=== PATIENT | female | born 1975 | race Caucasian/White ===

== ENCOUNTER 2017-12-19 10:24 | Emergency (ER) | payer BC, OTHER ==
[2017-12-19 11:33] LABS: Urine Blood NEGATIVE (NEG); Urine Glucose NEGATIVE (NEG); Urine Protein NEGATIVE (NEG); Urine Specific Gravity 1.015 (1.005-1.030); Urine pH 7.5 (5.0-7.0)
[2017-12-19 12:03] LABS: Absolute Lymphocytes (CBC) 2.5 K/uL (0.7-4.9); Absolute Monocytes 0.5 K/uL (0.1-1.3); Absolute Neutrophil 5.2 K/uL (1.8-8.0); Basophils % 0.6 % (0-1.3); Hematocrit 37.6 % (36.0-45.0); Lymphocytes % 29.5 % (15.3-44.8); MCH 31.4 pg (27.0-35.0); MCV 90.8 fL (80-100); MPV 7.2 fL (7.6-11.3); Monocytes % 5.8 % (3.3-12.3); RBC Red Blood Cell Count 4.14 M/uL (3.86-4.86)
[2017-12-19 12:04] LABS: Barbiturates NEGATIVE (NEGATIVE); Benzodiazepines NEGATIVE (NEGATIVE); Cocaine NEGATIVE (NEGATIVE); METHAMPHETAM NEGATIVE (NEGATIVE); Methadone NEGATIVE (NEGATIVE); Opiates NEGATIVE (NEGATIVE); Phencyclidine NEGATIVE (NEGATIVE); Protime INR 1.02; THC Cannibis NEGATIVE (NEGATIVE)
[2017-12-19 12:19] LABS: ALT/SGPT 26 U/L (12-78); AST/SGOT 18 U/L (15-37); Albumin 4.1 g/dL (3.4-5.0); Alkaline Phosphatase 76 U/L (45-117); BUN Blood Urea Nitrogen 6 mg/dL (7-18); Bicarbonate 24 mmol/L (21-32); Bilirubin Direct 0.1 mg/dL (0-0.2); Bilirubin Total 0.4 mg/dL (0.2-1.0); Glucose Level 99 mg/dL (74-106); Potassium 3.8 mmol/L (3.5-5.1); Protein, Total 8.2 g/dL (6.4-8.2); Sodium Level 143 mmol/L (136-145)
[2017-12-19] MEDS ORDERED: NA CHLORIDE 0.9% 1,000 ML ONE (13:00)
--- NOTE | 2017-12-19 15:23 | EDPHYS ---
Physician Documentation [facility] Name: Julita Winchester Age: 42 yrs Sex: Female : 1975 Arrival Date: 12/19/2017 Time: 10:49 Bed 17 Private MD: ED Physician Aric Vásquez HPI: 12/19 12:00 This 42 yrs old Female presents to ER via EMS with complaints of Psych jr8 Problem. 12:00 The patient presents to the emergency department with depression, suicide ideation, and jr8 the patient has a plan, to cut oneself and bleed. Onset: The symptoms/episode began/occurred acutely, today. Past psychiatric history: Prior diagnosis: depression, Psychiatric medications include: Wellbutrin. Associated signs and symptoms: The patient has no apparent associated signs or symptoms. Severity of symptoms: At their worst the symptoms were moderate in the emergency department the symptoms are unchanged. The patient has experienced similar episodes in the past, a few times. The patient has not recently seen a physician. Patient stated that she goes through stages of depression. On medication but feels it should be helping more. Stated that over the past 2 weeks has felt very depressed. Today wanted to cut herself with a knife to kill herself. Superficial wounds noted to left wrist and right middle digit. Admits that she could have gone through with trying to kill herself today . [employer]: 10:53 LMP 12/15/2017 aj Historical: - Allergies: 10:53 No Known Allergies; aj - Home Meds: 10:53 lisinopril 20 mg Oral tab 1 tab once daily [Active]; Wellbutrin 100 mg Oral tab 1 tab 3 aj times per day [Active]; hydroxyzine HCl 10 mg Oral tab [Active]; - PMHx: 10:53 Depression; Hypertension; aj - PSHx: 10:53 None; aj - Immunization history:: Adult Immunizations up to date. - Social history:: Smoking status: Patient uses tobacco products, smokes one-half pack cigarettes per day, Patient uses alcohol, patient/guardian reports recent binge of alcohol consumption. - Ebola Screening: : Patient negative for fever greater than or equal to 101.5 degrees Fahrenheit, and additional compatible Ebola Virus Disease symptoms Patient denies exposure to infectious person Patient denies travel to an Ebola-affected area in the 21 days before illness onset No symptoms or risks identified at this time. ROS: 12:00 Constitutional: Negative for fever, chills, and weight loss. jr8 12:00 Skin: Positive for superficial lacerations. 12:00 Psych: Positive for depression, suicidal ideation. 12:00 All other systems are negative. Exam: 12:00 Head/Face: Normocephalic, atraumatic. Eyes: Pupils equal round and reactive to light, jr8 extra-ocular motions intact. Lids and lashes normal. Conjunctiva and sclera are non-icteric and not injected. Cornea within normal limits. Periorbital areas with no swelling, redness, or edema. ENT: Nares patent. No nasal discharge, no septal abnormalities noted. Tympanic membranes are normal and external auditory canals are clear. Oropharynx with no redness, swelling, or masses, exudates, or evidence of obstruction, uvula midline. Mucous membranes moist. Neck: Trachea midline, no thyromegaly or masses palpated, and no cervical lymphadenopathy. Supple, full range of motion without nuchal rigidity, or vertebral point tenderness. No Meningismus. Cardiovascular: Regular rate and rhythm with a normal S1 and S2. No gallops, murmurs, or rubs. Normal PMI, no JVD. No pulse deficits. Respiratory: Lungs have equal breath sounds bilaterally, clear to auscultation and percussion. No rales, rhonchi or wheezes noted. No increased work of breathing, no retractions or nasal flaring. Abdomen/GI: Soft, non-tender, with normal bowel sounds. No distension or tympany. No guarding or rebound. No evidence of tenderness throughout. Back: No spinal tenderness. No costovertebral tenderness. Full range of motion. MS/ Extremity: Pulses equal, no cyanosis. Neurovascular intact. Full, normal range of motion. Neuro: Awake and alert, GCS 15, oriented to person, place, time, and situation. Cranial nerves II-XII grossly intact. Motor strength 5/5 in all extremities. Sensory grossly intact. Cerebellar exam normal. Normal gait. 12:00 Skin: superficial lacerations noted to left wrist. no other trauma noted anywhere else . 12:00 Psych: Behavior/mood is suicidal, depressed, Affect is calm, Oriented to person, place, time, Patient having thoughts of suicide. Plan for suicide is See HPI Memory is normal. Delusions/hallucinations are not present. Vital Signs: 10:53 BP 137 / 87; Pulse 91; Resp 20; Temp 98.5; Pulse Ox 99% on R/A; Weight 95.25 kg; Height aj 5 ft. 6 in. (167.64 cm); 13:56 BP 117 / 77; Pulse 79; Resp 18; Pulse Ox 100% on R/A; 5 10:53 Body Mass Index 33.89 (95.25 kg, 167.64 cm) MDM: 10:49 Patient medically screened[address] [facility] 15:21 Data reviewed: vital signs, nurses notes, lab test result(s), EKG. Data interpreted: 8 Pulse oximetry: on room air is 100 %. Interpretation: normal. Counseling: I had a detailed discussion with the patient and/or guardian regarding: the historical points, exam findings, and any diagnostic results supporting the discharge/admit diagnosis, lab results, the need to transfer to another facility, [facility] does not immediately have the required specialist. ED course: Spoke with Dr. Reed at [facility] who is more then happy to accept patient for further evaluation . 12/19 11:06 Order name: Urine Dipstick--Ancillary (enter results); Complete Time: 11:59 12/19 11:06 Order name: Urine --Ancillary (enter results); Complete Time: 11:59 12/19 11:42 Order name: Acetaminophen; Complete Time: 12:36 12/19 11:42 Order name: Basic Metabolic Panel; Complete Time: 12:36 12/19 11:42 Order name: CBC with Diff; Complete Time: 12:10 12/19 11:42 Order name: ETOH Level; Complete Time: 12:36 12/19 11:33 Order name: Diet Regular; Complete Time: 11:34 [facility] 12/19 11:42 Order name: Hepatic Function; Complete Time: 12:36 12/19 11:42 Order name: PT-INR; Complete Time: 12:10 12/19 11:42 Order name: Ptt, Activated; Complete Time: 12:10 12/19 11:42 Order name: Salicylate; Complete Time: 12:36 12/19 11:42 Order name: Urine Drug Screen; Complete Time: 12:10 12/19 15:14 Order name: ETOH Level; Complete Time: 16:44 bd 12/19 11:42 Order name: EKG; Complete Time: 11:42 aj 12/19 11:42 Order name: EKG - Nurse/Tech; Complete Time: 12:00 aj 12/19 11:42 Order name: IV Saline Lock; Complete Time: 11:42 aj 12/19 11:42 Order name: Labs collected and sent; Complete Time: 11:42 aj 12/19 11:42 Order name: Urine Dipstick-Ancillary (obtain specimen); Complete Time: 11:43 12/19 15:16 Order name: Diet Regular; Complete Time: 15:17 5 Administered Medications: 12:50 Drug: NS 0.9% 1000 ml Route: IV; Rate: 1000 ml; Site: right wrist; 16:23 Follow up: Response: No adverse reaction; IV Status: Completed infusion; IV Intake: aj 1000ml Disposition: 12/20 15:21 Co-signature as Attending Physician, Aric Vásquez MD. Disposition: 12/19/17 15:22 Transfer ordered to Psych Facility. Diagnosis are Major depressive disorder, recurrent, Suicidal ideations. - Reason for transfer: Higher level of care. - Accepting physician is Dr. Reed. - Condition is Stable. - Problem is new. - Symptoms have improved. Signatures: Dispatcher [employer] Tessie Andrews, Nato Rendon RN, PA PA jr8 Aric Vásquez MD MD Corrections: (The following items were deleted from the chart) 12/19 16:33 15:22 12/19/2017 15:22 Transfer ordered to Psych Facility. Diagnosis is Major aj depressive disorder, recurrent; Suicidal ideations. Reason for transfer: Higher level of care. Accepting physician is Dr. Reed. Condition is Stable. Problem is new. Symptoms have improved. jr8
--- NOTE | 2017-12-19 15:23 | ER ---
Nurse's Notes [facility] Name: Julita Winchester Age: 42 yrs Sex: Female : 1975 Arrival Date: 12/19/2017 Time: 10:49 Bed 17 Private MD: Diagnosis: Major depressive disorder, recurrent;Suicidal ideations Presentation: 12/19 10:49 Presenting complaint: EMS states: Patient's daughter called 911 because patient had aj been hiding knives and "speaking as if she was going to ". Patient currently denies suicidal ideation. Patient sustained superficial laceration to right finger while trying to hide knives from daughter. Denies intention injury. Patient is tearful and reports feeling profoundly depressed for 2 weeks. Transition of care: patient was not received from another setting of care. Onset of symptoms was December 05, 2017. Risk Assessment: Do you want to hurt yourself or someone else? Other: Patient denies Suicidal Ideation, however daughter stated that patient has been very upset since last night and was hiding knives and speaking as if she was going to soon. Initial Sepsis Screen: Does the patient meet any 2 criteria? No. Patient's initial sepsis screen is negative. Does the patient have a suspected source of infection? No. Patient's initial sepsis screen is negative. Care prior to arrival: None. 10:49 Method Of Arrival: EMS: [facility] 10:49 Acuity: IFTIKHAR 2 Triage Assessment: 10:53 General: Appears in no apparent distress. comfortable, Behavior is crying, Smells of aj alcohol. Pain: Denies pain. Neuro: Level of Consciousness is awake, alert, obeys commands, Oriented to person, place, time, situation, Appropriate for age. Respiratory: Airway is patent Respiratory effort is even, unlabored, Respiratory pattern is regular, symmetrical. Derm: Skin is intact, is healthy with good turgor, Skin is pink, warm \\T\\ dry. normal. 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 - Social history:: Smoking status: Patient uses tobacco products, smokes one-half pack cigarettes per day, Patient uses alcohol, patient/guardian reports recent binge of alcohol consumption. - Ebola Screening: : Patient negative for fever greater than or equal to 101.5 degrees Fahrenheit, and additional compatible Ebola Virus Disease symptoms Patient denies exposure to infectious person Patient denies travel to an Ebola-affected area in the 21 days before illness onset No symptoms or risks identified at this time. Screenin:56 Abuse screen: Denies threats or abuse. Denies injuries from another. Nutritional aj screening: No deficits noted. Tuberculosis screening: No symptoms or risk factors identified. Fall Risk None identified. Assessment: 14:40 Reassessment: Patient appears in no apparent distress at this time. No changes from aj previously documented assessment. Patient and/or family updated on plan of care and expected duration. Pain level reassessed. Patient is alert, oriented x 3, equal unlabored respirations, skin warm/dry/pink. Patient is resting in bed. Patient denies pain at this time. 16:19 Reassessment: Patient appears in no apparent distress at this time. No changes from aj previously documented assessment. Patient and/or family updated on plan of care and expected duration. Pain level reassessed. Patient is alert, oriented x 3, equal unlabored respirations, skin warm/dry/pink. Patient denies pain at this time. Psych: 10:56 Subjective: Patient's mood is sad, hopeless, Delusions are denied, Hallucinations are aj denied Having thoughts of Patient denies suicidal thoughts but family expresses concern that patient is a harm to herself. Objective: Patient is guarded, using poor eye contact, Speech is normal, Affect is appropriate, Patient has mutilated themselves by Patient denies superficial laceration to right hand was intentional. Patient stated "I was washing the kitchen knives and one slipped and cut me." Patient's daughter states "she got the cut on her hand when she pulled 3 knives out of the drawer and hid them behind her back so I couldn't see them. I got them away from her but had to take them from her.". Objective:. Interventions: Removed personal items and placed in bag. Patient placed in hospital gown. Searched person for dangerous items. Urine collected and sent for urine drug test. Patient's belongings given to family. Suicide Risk Assessment: Sad Person Scale: Sex of patient: Female: Score 0 points. Age of patient: Score 0 point if patient falls outside of specified age parameters. Depression: Score 1 point if signs of depression are present. Previous Attempt: Score 0 point if patient has not previously attempted suicide. Substance Abuse: Score 1 point if patient abuses alcohol or drugs. Rational Thinking: Score 0 point if patient has rational thinking. Social Support: Score 0 if social support is present/available. Organized Plan: Score 0 if patient did not have an organized plan in place. Relationship: Score 0 point if patient has a spouse or domestic partner. Chronic Sickness: Score 0 point if patient does not have a chronic illness, debilitating, or severe disorder. Safety Checks: Personal items have been removed. Door is open. Visitors are present. Patient uses 1-5 cans of beer, Last use was 10 hours ago. 12:00 Commitment: Patient will be a voluntary commitment. Vital Signs: 10:53 BP 137 / 87; Pulse 91; Resp 20; Temp 98.5; Pulse Ox 99% on R/A; Weight 95.25 kg; Height aj 5 ft. 6 in. (167.64 cm); 13:56 BP 117 / 77; Pulse 79; Resp 18; Pulse Ox 100% on R/A; mh5 10:53 Body Mass Index 33.89 (95.25 kg, 167.64 cm) ED Course: 10:30 Safety checks: Items removed: yes. Door open/sign placed on door: yes. Family/friend mh5 present: yes. Family/friends encouraged to stay with patient. Sitter present: Yes. Patient has correct armband on for positive identification. Placed in gown. Bed in low position. Side rails up X 1. Adult w/ patient. Warm blanket given. Pulse ox on. NIBP on. 10:45 Safety checks: Items removed: yes. Door open/sign placed on door: yes. Family/friend mh5 present: yes. Sitter present: Yes. 10:49 Patient arrived in ED. aj 10:49 Nato Barry PA is PHCP. jr8 10:49 Aric Vásquez MD is Attending Physician. jr8 10:52 Triage completed. aj 10:53 Arm band placed on left wrist. Patient placed in an exam room, on a stretcher, in view aj of staff members, Patient Room cleared per SI protocol. 11:00 Safety checks: Items removed: yes. Door open/sign placed on door: yes. Family/friend mh5 present: yes. Sitter present: Yes. 11:09 Missed attempt(s): 20 gauge in right antecubital area. 5 11:09 Urine collected: clean catch specimen, clear. 5 11:12 Urine --Ancillary (enter results) Sent. 5 11:12 Urine Dipstick--Ancillary (enter results) Sent. 5 11:15 Safety checks: Items removed: yes. Door open/sign placed on door: yes. Family/friend mh5 present: yes. Family/friends encouraged to stay with patient. Sitter present: Yes. 11:30 Safety checks: Items removed: yes. Door open/sign placed on door: yes. Family/friend mh5 present: yes. Family/friends encouraged to stay with patient. Sitter present: Yes. 11:41 Tessie Ortiz, RN is Primary Nurse. aj 11:43 Inserted saline lock: 22 gauge in right wrist, using aseptic technique. Blood collected.aj 11:45 Safety checks: Items removed: yes. Door open/sign placed on door: yes. Family/friend mh5 present: no. Sitter present: Yes. 11:45 Urine Drug Screen Sent. 5 11:59 EKG done, by ED staff, reviewed by Nato SHARP. 5 12:00 Safety checks: Items removed: yes. Door open/sign placed on door: yes. Family/friend mh5 present: no. Sitter present: Yes. 12:13 Diet: Patient given a regular meal tray. 5 12:15 Safety checks: Items removed: yes. Door open/sign placed on door: yes. Family/friend mh5 present: no. Sitter present: Yes. 12:30 Safety checks: Items removed: yes. Door open/sign placed on door: yes. Family/friend mh5 present: no. Sitter present: Yes. 12:45 Safety checks: Items removed: yes. Door open/sign placed on door: yes. Family/friend mh5 present: no. Sitter present: Yes. 13:00 Safety checks: Items removed: yes. Door open/sign placed on door: yes. Family/friend mh5 present: no. Sitter present: Yes. 13:15 Safety checks: Items removed: yes. Door open/sign placed on door: yes. Family/friend mh5 present: yes. Family/friends encouraged to stay with patient. Sitter present: Yes. 13:30 Safety checks: Items removed: yes. Door open/sign placed on door: yes. Family/friend mh5 present: yes. Sitter present: Yes. 13:45 Safety checks: Items removed: yes. Door open/sign placed on door: yes. Family/friend mh5 present: yes. Sitter present: Yes. 14:00 Safety checks: Items removed: yes. Door open/sign placed on door: yes. Family/friend mh5 present: no. Sitter present: Yes. 14:15 Safety checks: Items removed: yes. Door open/sign placed on door: yes. Family/friend mh5 present: yes. Sitter present: Yes. 14:26 faxed chart to [facility]. bd 14:30 Safety checks: Items removed: yes. Door open/sign placed on door: yes. Family/friend mh5 present: yes. Sitter present: Yes. 14:39 Report given to Margareth Day. aj 14:40 Safety checks: Items removed: yes. Door open/sign placed on door: yes. Family/friend jb1 present: yes. Family/friends encouraged to stay with patient. Sitter present: Yes. 14:51 Safety checks: Items removed: yes. Door open/sign placed on door: yes. Family/friend jb1 present: yes. Family/friends encouraged to stay with patient. Sitter present: Yes. 15:00 Safety checks: Items removed: yes. Door open/sign placed on door: yes. Family/friend mh5 present: yes. Sitter present: Yes. 15:15 Safety checks: Items removed: yes. Door open/sign placed on door: yes. Family/friend mh5 present: yes. Sitter present: Yes. 15:30 Safety checks: Items removed: yes. Door open/sign placed on door: yes. Family/friend mh5 present: yes. Sitter present: Yes. 15:30 Repeat lab(s) drawn. by me, sent to lab. 5 15:39 ETOH Level Sent. 5 15:45 Safety checks: Items removed: yes. Door open/sign placed on door: yes. Family/friend mh5 present: yes. Family/friends encouraged to stay with patient. Sitter present: Yes. 16:00 Safety checks: Items removed: yes. Door open/sign placed on door: yes. Family/friend mh5 present: yes. Family/friends encouraged to stay with patient. Sitter present: Yes. 16:15 Safety checks: Items removed: yes. Door open/sign placed on door: yes. Family/friend mh5 present: no. Sitter present: Yes. Other: EMS HERE TO TRANSFER PATEINT. 16:19 No provider procedures requiring assistance completed. aj 16:20 IV discontinued. [facility] 16:22 Report given to EMS. aj 16:22 intact. aj Administered Medications: 12:50 Drug: NS 0.9% 1000 ml Route: IV; Rate: 1000 ml; Site: right wrist; aj 16:23 Follow up: Response: No adverse reaction; IV Status: Completed infusion; IV Intake: aj 1000ml Intake: 16:23 IV: 1000ml; Total: 1000ml. paty Outcome: 15:22 ER care complete, transfer ordered by . katie 16:19 Transferred by ground EMS Transfer form completed. X-rays sent w/ patient. aj 16:19 Condition: good 16:19 Instructed on the need for transfer. 16:33 Patient left the ED. aj Signatures: Juan Ross jb1 Amie Lynne Amanda RN RN Nato Hernandez PA PA 8 Gretchen Frances [facility]
--- NOTE | 2017-12-20 09:09 | EKG ---
Test Date: 2017-12-19 Test Time: 11:54:25 Forcer Maker: GABINO MEASUREMENT RESULTS: Intervals: Rate: 80 MO: 140 QRSD: 86 QT: 400 QTc: 461 [place]: P: 22 MO: 140 QRS: 32 T: 25 INTERPRETIVE STATEMENTS: Normal sinus rhythm Normal ECG No previous ECG available for comparison Electronically Signed On 12-20-17 09:08:15 CDT by Martin Cook
== END 2017-12-19 16:33 ==
LOC: ER 10:24
DX: F32.9 Major depressive disorder, single episode, unspecified (principal); I10 Essential (primary) hypertension
CPT/HCPCS: 36415; 80048; 80076; 80307; 80320; 80329; 81003; 81025; 85025; 85610; 85730; 93005; 96360; 96361; 99285; J7030

== ENCOUNTER 2020-02-02 16:21 | Emergency (ER) | payer BC, OTHER ==
[2020-02-02 17:25] LABS: Absolute Lymphocytes (CBC) 2.6 K/uL (0.7-4.9); Basophils % 0.8 % (0-1.3); Hematocrit 43.5 % (36.0-45.0); Lymphocytes % 24.7 % (15.3-44.8); MPV 7.2 fL (7.6-11.3); RBC Red Blood Cell Count 4.39 M/uL (3.86-4.86)
[2020-02-02 17:28] LABS: Protime INR 0.95
[2020-02-02 17:39] LABS: ALT/SGPT 61 U/L (12-78); AST/SGOT 53 U/L (15-37); Albumin 3.8 g/dL (3.4-5.0); Alkaline Phosphatase 75 U/L (45-117); BUN Blood Urea Nitrogen 9 mg/dL (7-18); Bicarbonate 25 mmol/L (21-32); Bilirubin Direct 0.2 mg/dL (0-0.2); Bilirubin Total 0.8 mg/dL (0.2-1.0); Glucose Level 97 mg/dL (74-106); Magnesium 2.1 mg/dL (1.8-2.4); NT PRO-BNP 16 pg/mL (<125); Potassium 3.4 mmol/L (3.5-5.1); Protein, Total 7.8 g/dL (6.4-8.2); Sodium Level 138 mmol/L (136-145); Troponin (Emerg Dept Use Only) < 0.02 ng/mL (0.0-0.045)
--- NOTE | 2020-02-02 18:32 | EDPHYS ---
Physician Documentation [facility] Name: Julita Winchester Age: 44 yrs Sex: Female : 1975 Arrival Date: 02/02/2020 Time: 16:27 Bed 25 Private MD: ED Physician Rebel Caballero HPI: 02/01 16:55 This 44 yrs old Female presents to ER via EMS with complaints of High Blood cp Pressure, Chest Pressure. 16:55 The patient or guardian reports chest pain that is located primarily in the anterior cp chest wall, bilaterally. 16:55 Onset: 3 day(s) ago. The pain does not radiate. cp 16:55 The chest pain is described as tightness. cp 16:55 Duration: The patient or guardian reports multiple episodes, that are intermittent. EMS cp care prior to arrival includes: aspirin, nitroglycerin, x 1. 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 - Social history:: Smoking status: Patient denies any tobacco usage or history of. ROS: 17:00 Cardiovascular: Positive for chest pain. cp 17:00 Constitutional: Negative for fever. cp 17:00 Respiratory: Positive for shortness of breath, on exertion. Negative for cough, wheezing. 17:00 Abdomen/GI: Negative for abdominal pain, nausea, vomiting, and diarrhea. 17:00 Neuro: Negative for altered mental status, headache, syncope, weakness. 17:00 All other systems are negative. Exam: 16:55 ECG was reviewed by the Attending Physician. cp 17:05 Constitutional: The patient appears in no acute distress, alert, awake, cp non-diaphoretic, non-toxic, well developed, well nourished, obese. 17:05 Head/Face: Normocephalic, atraumatic. cp 17:05 Eyes: Periorbital structures: appear normal, Conjunctiva: normal, no exudate, no injection, Sclera: no appreciated abnormality, Lids and lashes: appear normal, bilaterally. 17:05 ENT: External ear(s): are unremarkable, Nose: is normal, Mouth: Lips: moist, Oral mucosa: moist, Posterior pharynx: Airway: no evidence of obstruction, patent. 17:05 Chest/axilla: Inspection: normal, Palpation: is normal, no crepitus, no tenderness. 17:05 Cardiovascular: Rate: tachycardic, Rhythm: regular, Edema: is not appreciated, JVD: is not appreciated. 17:05 Respiratory: the patient does not display signs of respiratory distress, Respirations: normal, no use of accessory muscles, no retractions, labored breathing, is not present, Breath sounds: are clear throughout, no decreased breath sounds, no stridor, no wheezing. 17:05 Abdomen/GI: Inspection: abdomen appears normal, Palpation: abdomen is soft and non-tender, in all quadrants. 17:05 Neuro: Orientation: to person, place \T\ time. Mentation: is normal, Cerebellar function: is grossly normal, Motor: moves all fours, strength is normal, Sensation: is normal. Vital Signs: 16:40 BP 160 / 92; Pulse 118; Resp 18; Temp 97.7; Pulse Ox 98% on R/A; sg 17:30 BP 141 / 98; Pulse 108; Resp 18; Temp 97.7; Pulse Ox 98% on R/A; Pain 1/10; sg 18:57 BP 132 / 85; Pulse 110; Resp 20 S; Pulse Ox 96% on R/A; jd3 20:13 BP 124 / 92; Pulse 108; Resp 17 S; Pulse Ox 96% on R/A; jd3 22:49 BP 135 / 70; Pulse 103; Resp 17 S; Pulse Ox 98% on R/A; jd3 MDM: 16:32 Patient medically screened. cp 17:00 Differential diagnosis: acute myocardial infarction, acute pericarditis, pneumonia, cp pneumothorax, pulmonary embolus, stable angina, unstable angina. 18:00 Data reviewed: vital signs, nurses notes, lab test result(s), EKG, radiologic studies, cp plain films. 18:00 The patient was not given aspirin in the Emergency Department. Administered by EMS. Test interpretation: by ED physician or midlevel provider: ECG, chest xray negative for infiltrates. 20:22 Physician consultation: was contacted at 20:22, regarding regarding transfer, to [facility]. patient's condition, accepting physician will be DR Klaus Dyer. 02/01 16:51 Order name: Basic Metabolic Panel; Complete Time: 17:54 02/01 17:54 Interpretation: Normal except: K 3.4; GFR 79. 02/01 16:51 Order name: CBC with Diff; Complete Time: 17:54 02/01 16:51 Order name: LFT's; Complete Time: 17:54 02/01 16:51 Order name: Magnesium; Complete Time: 17:54 02/01 16:51 Order name: NT PRO-BNP; Complete Time: 17:54 02/01 16:51 Order name: PT-INR; Complete Time: 17:54 02/01 16:51 Order name: Troponin (emerg Dept Use Only); Complete Time: 17:54 02/01 17:55 Interpretation: TROPED < 0.02; Reviewed. 02/01 16:51 Order name: XRAY Chest (1 view) 02/01 16:51 Order name: EKG; Complete Time: 16:52 02/01 16:51 Order name: Cardiac monitoring; Complete Time: 17:35 02/01 16:51 Order name: EKG - Nurse/Tech; Complete Time: 17:35 02/01 16:51 Order name: IV Saline Lock; Complete Time: 17:35 02/01 16:51 Order name: Labs collected and sent; Complete Time: 17:35 02/01 16:51 Order name: D-Dimer; Complete Time: 17:54 02/01 16:51 Order name: O2 Per Protocol; Complete Time: 17:35 02/01 16:51 Order name: O2 Sat Monitoring; Complete Time: 17:35 EC:55 Rate is 113 beats/min. Rhythm is regular. TN interval is normal. QRS interval is cp normal. QT interval is normal. T waves are Flattened in lead III. Interpreted by me. Reviewed by me. Administered Medications: No medications were administered Disposition: 18:45 Chart complete. cp Disposition: 02/02/20 18:32 Transfer ordered to [facility]. Diagnosis is Chest pain, unspecified. - Reason for transfer: Higher level of care. - Accepting physician is Doctor. - Condition is Stable. - Problem is new. - Symptoms have improved. Addendum: 02/04/2020 17:39 Co-signature as Attending Physician, Rebel Caballero MD I agree with the assessment and k dr plan of care. Signatures: Dispatcher [employer] EDMS Heber Peterson RN RN sg Rebel Caballero MD MD kdr Marcus Jacobson PA PA James Stewart RN RN jd3 Corrections: (The following items were deleted from the chart) 02/01 23:18 18:32 02/02/2020 18:32 Transfer ordered to [facility]. Diagnosis jd3 is Chest pain, unspecified. Reason for transfer: Higher level of care. Accepting physician is Doctor. Condition is Stable. Problem is new. Symptoms have improved. cp
--- NOTE | 2020-02-02 18:32 | ER ---
Nurse's Notes [facility] Name: Julita Winchester Age: 44 yrs Sex: Female : 1975 Arrival Date: 02/02/2020 Time: 16:27 Bed 25 Private MD: Diagnosis: Chest pain, unspecified Presentation: 02/01 16:29 Chief complaint: Chief complaint: EMS states: Was at the [place] [facility] for treatment of sg high blood pressure when chest tightness developed. 16:29 Acuity: IFTIKHAR 3 sg 16:37 Coronavirus screen: Client denies travel out of the [place] in the last 14 days. Ebola sg Screen: Patient negative for fever greater than or equal to 101.5 degrees Fahrenheit, and additional compatible Ebola Virus Disease symptoms Patient denies exposure to infectious person. Patient denies travel to an Ebola-affected area in the 21 days before illness onset. No symptoms or risks identified at this time. Initial Sepsis Screen: Does the patient meet any 2 criteria? No. Patient's initial sepsis screen is negative. Does the patient have a suspected source of infection? No. Patient's initial sepsis screen is negative. Risk Assessment: Do you want to hurt yourself or someone else? Patient reports no desire to harm self or others. Care prior to arrival: Medication(s) given: ASA, 81 mg, x 4, Nitroglycerin, 0.4 mg SL x 1. 16:37 Method Of Arrival: EMS: [facility] sg 18:56 Onset of symptoms was February 02, 2020. 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 - Social history:: Smoking status: Patient denies any tobacco usage or history of. Screenin:30 Abuse screen: Denies threats or abuse. Denies injuries from another. Nutritional sg screening: No deficits noted. Tuberculosis screening: No symptoms or risk factors identified. Never had TB. Fall Risk None identified. Assessment: 16:30 General: Appears in no apparent distress. comfortable, well groomed, well developed, sg well nourished, Behavior is calm, cooperative, appropriate for age. Pain: Complains of pain in chest, described as pressure, has been relieved with NITRO SL given in route to ER. 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 Full function Gait is steady, Speech is normal, Facial symmetry appears normal. Respiratory: Airway is patent Respiratory effort is even, unlabored, Respiratory pattern is regular, symmetrical. GI: Abdomen is round non-distended, Reports tolerance of fluids, tolerance of food. : No signs and/or symptoms were reported regarding the genitourinary system. EENT: No signs and/or symptoms were reported regarding the EENT system. Derm: Skin is pink, warm \T\ dry. red, to face. Musculoskeletal: Circulation, motion, and sensation intact. Range of motion: intact in all extremities. 17:30 Reassessment: Patient appears in no apparent distress at this time. Patient and/or sg family updated on plan of care and expected duration. Pain level reassessed. Patient is alert, oriented x 3, equal unlabored respirations, skin warm/dry/pink. Patient denies pain at this time. 18:54 General: Appears in no apparent distress. comfortable, Behavior is calm, cooperative, jd3 appropriate for age, Reports pain prior to arrival. Pain: Denies pain. Neuro: Level of Consciousness is awake, alert, obeys commands, Oriented to person, place, time, situation. Cardiovascular: Reports chest pain that was relieved after medications from EMS Capillary refill < 3 seconds Patient's skin is warm and dry. Rhythm is regular. Respiratory: Airway is patent Respiratory effort is even, unlabored, Respiratory pattern is regular, symmetrical, Denies cough, shortness of breath. GI: No signs and/or symptoms were reported involving the gastrointestinal system. : No signs and/or symptoms were reported regarding the genitourinary system. EENT: No signs and/or symptoms were reported regarding the EENT system. Derm: Skin is intact, Skin is dry, Skin is normal, Skin temperature is warm. Musculoskeletal: Circulation, motion, and sensation intact. Range of motion: intact in all extremities. 20:13 Reassessment: Patient appears in no apparent distress at this time. Patient and/or jd3 family updated on plan of care and expected duration. Pain level reassessed. Patient is alert, oriented x 3, equal unlabored respirations, skin warm/dry/pink. awaiting acceptance from [place]. 22:49 Reassessment: Patient appears in no apparent distress at this time. Patient and/or jd3 family updated on plan of care and expected duration. Pain level reassessed. Patient is alert, oriented x 3, equal unlabored respirations, skin warm/dry/pink. report called and given to Winston [place] at the [place]. 23:17 Reassessment: Patient appears in no apparent distress at this time. Patient and/or jd3 family updated on plan of care and expected duration. Pain level reassessed. Patient is alert, oriented x 3, equal unlabored respirations, skin warm/dry/pink. report given to EMS for transfer. Vital Signs: 16:40 BP 160 / 92; Pulse 118; Resp 18; Temp 97.7; Pulse Ox 98% on R/A; sg 17:30 BP 141 / 98; Pulse 108; Resp 18; Temp 97.7; Pulse Ox 98% on R/A; Pain 1/10; sg 18:57 BP 132 / 85; Pulse 110; Resp 20 S; Pulse Ox 96% on R/A; jd3 20:13 BP 124 / 92; Pulse 108; Resp 17 S; Pulse Ox 96% on R/A; jd3 22:49 BP 135 / 70; Pulse 103; Resp 17 S; Pulse Ox 98% on R/A; jd3 Vitals: 17:30 Cardiac Rhythm Assessment Sinus tach. ED Course: 16:27 Patient arrived in ED. em1 16:29 Triage completed. 16:30 Marcus Jacobson PA is PHCP. 16:30 Rebel Caballero MD is Attending Physician. 16:37 Heber Peterson, RN is Primary Nurse. sg 16:39 Arm band placed on. sg 16:50 Patient has correct armband on for positive identification. Bed in low position. Call sg light in reach. Side rails up X2. engine monitor on. Pulse ox on. NIBP on. Warm blanket given. Head of bed elevated. 16:55 Initial lab(s) drawn, by me, sent to lab. Inserted saline lock: 22 gauge in left sg antecubital area, using aseptic technique. Blood collected. 17:19 XRAY Chest (1 view) In Process Unspecified. EDMS 18:27 [facility] contacted to initiate transfer. em1 18:53 James Fajardo, RN is Primary Nurse. jd3 19:20 Diet tray given. jd3 22:50 No provider procedures requiring assistance completed. Patient transferred, IV remains jd3 in place. Administered Medications: No medications were administered Outcome: 18:32 ER care complete, transfer ordered by MD. cp 23:17 Transferred by ground EMS to [facility] Transfer form completed. jd3 X-rays sent w/ patient. 23:17 Condition: stable 23:17 Instructed on the need for transfer, Demonstrated understanding of instructions. 23:18 Patient left the ED. jd3 Signatures: Dispatcher [employer] EDMS Heber Peterson, RN RN Randy Alas em1 Marcus Jacobson PA PA cp Davies, Jonathon, RN RN jd3 Corrections: (The following items were deleted from the chart) 16:38 16:29 Chief complaint: [facility]
--- NOTE | 2020-02-02 20:53 | RAD REPORT ---
EXAM DESCRIPTION: RAD - Chest Single View - 02/02/2020 5:19 pm CLINICAL HISTORY: SOB COMPARISON: None TECHNIQUE: AP portable chest image was obtained 02/02/2020 5:19 pm . FINDINGS: Lungs are clear. Heart and vasculature are normal. No measurable pleural effusion and no p neumothorax. No acute bony abnormality seen. No acute aortic findings suspected. IMPRESSION: No acute cardiopulmonary process.
[2020-02-07 10:43] VITALS: TEMP 97.7
[2020-02-07 10:48] VITALS: BP 135/70; O2SAT 98
== END 2020-02-02 23:18 ==
LOC: ER 16:21
DX: R07.89 Other chest pain (principal); I10 Essential (primary) hypertension; F32.9 Major depressive disorder, single episode, unspecified
CPT/HCPCS: 36415; 71045; 80048; 80076; 83735; 83880; 84484; 85025; 85379; 85610; 93005; 99285